=== PATIENT | female | born 1980 | race Caucasian/White ===

== ENCOUNTER 2023-04-13 07:51 | Day surgery (SDC) | payer OTHER, SELFPAY ==
[2023-04-06 10:35] VITALS: BMI 21.3
[2023-04-06 11:08] LABS: % Basophils 0.8 % (0-2); % Eosinophils 2.1 % (0-6); % Immature Granulocytes 0.3 % (0-0.5); % Lymphocytes 44.3 % (20.5-51.1); % Monocytes 6.9 % (1.7-9.3); % Neutrophils 45.6 % (42.2-75.2); Absolute Eosinophils 0.1 10^3/uL (0-0.7); Absolute Lymphocytes 1.7 10^3/uL (1.2-3.4); Absolute Monocytes 0.3 10^3/uL (0.1-0.6); Absolute Neutrophils 1.7 10^3/uL (1.4-6.5); Hematocrit 37.4 % (37.0-47.0); Hemoglobin 12.7 g/dL (12.0-16.0); Mean Corpuscular Hgb 31.3 pg (27.0-31.0); Mean Corpuscular Volume 92.1 fL (81.0-99.0); Mean Platelet Volume 9.5 fL (7.4-10.4); Nucleated Red Blood Cells % 0 %; Platelet Count 289 10^3/uL (130-400); Red Blood Cell Count 4.06 10^6/uL (4.20-5.40); White Blood Cell Count 3.8 10^3/uL (4.8-10.8)
[2023-04-06 11:15] LABS: ALT (SGPT) 16 U/L (0-35); AST (SGOT) 26 U/L (14-36); Albumin 4.5 g/dl (3.5-5.0); Alkaline Phosphatase 36 U/L (38-126); Blood Urea Nitrogen 14 mg/dl (7-17); Calcium 9.9 mg/dl (8.4-10.2); Carbon Dioxide 29 mmol/L (22-30); Chloride 99 mmol/L (98-107); Estimated Creatinine Clearance 92 ml/min; Glucose 82 mg/dl (70-99); Potassium 4.2 mmol/L (3.5-5.1); Sodium 137 mmol/L (135-145); Total Bilirubin 0.7 mg/dl (0.2-1.3); Total Protein 7.3 g/dl (6.3-8.2); eGFR > 60.00
[2023-04-13] VITALS (15 sets, daily range): BP systolic 100–124; BP diastolic 70–86; BMI 21.3
[2023-04-13 08:37] LABS: HCG, Urine Qualitative Screen Negative
--- NOTE | 2023-04-13 11:50 | ITS.CL.ABL ---
Director Bioinformatics - Ablation
Ablation
Procedure Report:
Supra-Ventricular Tachycardia � AVRT Ablation:
Ms. Lorenzo is a very pleasant�43 yr old woman with medical history significant for palpitations and was diagnosed with supra-ventricular tachycardia (SVT). He presented today to the EP lab for electrophysiology (EP) study of the heart and possible
ablation of the SVT.
Primary office support: Dr. Alok Suarez
�
Date of the Procedure:
04/13/2023
Indications: Supra-Ventricular Tachycardia (SVT)
�
Pre-Operative Diagnosis: Supra-Ventricular Tachycardia (SVT)
�
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
�
Procedure Performed: EP study and SVT ablation
�
Performing physician:
Olga Camacho MD
�
Anesthesia:
See anesthesia records
�
Detailed Description of the Procedure:
Written informed consent was obtained from the patient after a full explanation of the risks and benefits of the procedure including the risks of sedation and anesthesia. The patient was brought to the electrophysiology laboratory in stable
condition in fasting state. Continuous electrocardiographic and hemodynamic monitoring was initiated.
The initial rhythm was normal sinus.
The procedure site was meticulously prepared with surgical scrub and allowed to dry with no pooling. Sterile draping was applied to cover the procedure site. The image intensifier was draped with sterile bag and positioned over the patient.
Sheath and Catheter Placement:
After infusion of local anesthetic, vascular access was obtained under ultrasound guidance and sheaths were placed over guide wire as detailed below.
�
Sheaths:
- � � � 6 Fr sheath in right femoral vein
- � � � 9 Fr sheath in right femoral vein
- � � � 7 Fr sheath in right femoral vein
- � � � 8 Fr that was later upgraded to 11.5 Fr VIZIGO sheath in right femoral vein
�
Catheters:
- � � � 6Fr - Luis Quad-cath at RVa
- � � � 6Fr � Quad - cath at HIS
- � � � Deca polar Bard catheter - at locations of CS
- � � � ICE in RA
- � � � 3.5 mm force sensing irrigated Thermocool ST SF Bidirectional
�
Patient went into SVT spontaneously and has almost incessant tachycardia at 140 bpm. Given her incessant SVT, the SVT was studied first and full EP study was done later.
Following the sheaths placement, patient was given Heparin bolus.
Baseline intervals (milliseconds):
PP interval (baseline cycle length): 720
P wave duration:118
SD interval:156
QRS duration: 78
QT interval: 361
�
P onset to HRA: 0
P onset to AVJ: 40
AH interval: 68
His duration: 12
HV interval: 32
Q onset to RVa: 0
��
Sinus Node Function:
HRA pacing showed adequate threshold. The sinus node functions are within acceptable normal range.
SVT Arrhythmia Induction:
Programmed stimulation including single extrastimuli were delivered from the high right atrium and the proximal coronary sinus location following the drive train at 600 msec. There was easily inducible SVT that was able to speed up after the
initiation. �Tachycardia was not sustained and despite multiple termination attempts full EP study could not be done until the end of the ablation. The CS activation was concentric at baseline in sinus rhythm but was noted shelby eccentric in
tachycardia.
With incessant tachycardia following observations were made.
Tachycardia:
The tachycardia was studies with a cycle length of 340 msec. The tachycardia was eccentric and had long VA time (RV to RA). The tachycardia was entrained from the RVa ventricle.
i)������������� RVa PPI was indicative of close to the circuit of the tachycardia.
ii)������������ The RVa entrainment terminated the tachycardia once it perturb the tachycardia in a single beat.�
iii)���������� Proximal CS pacing showed progressive pre-excitation.�
iv)���������� The tachycardia terminated with a HIS synchronized PVC without conducting to the AV node again confirming the diagnosis.
v)����������� The LA was mapped in detail once the LA was accessed and showed the earliest point of the tachycardia at the left lateral location with close LV signals.
These findings were consistent with left sided accessory pathway.�
Trans-Septal Puncture:
Heparin was initiated and infused to maintain appropriate ACT.
First the right atrial mapping was done showing the tachycardia coming from the left atrium. A J-tipped guidewire was advanced through the 8-Mexican sheath in the right femoral vein into the superior vena cava under fluoroscopic and ICE guidance. The
8-Mexican sheath was exchanged for a VIZIGO sheath which was advanced into the superior vena cava. A BRK needle was advanced until the tip was slightly behind the tip of the dilator inside the VIZIGO. The apparatus was withdrawn until it was in
contact with the fossa ovalis.
There was a small patent santana ovale which led to the cannulation of the left atrium. The position was adjusted based on fluoroscopy and ultrasound images from ICE. Once atrial septum was cannulated, the needle was pulled back and a BMW guide wire
was advanced through the needle into the left atrium. The guide wire was advanced into the left superior pulmonary vein. Both the sheath and the dilator was advanced into the left atrium. The dilator with the needle was withdrawn. Blood was
aspirated from the VIZIGO sheath and arterial blood confirmed. The sheath was flushed. Saline injection noted into the left atrium on ICE. The ablation catheter was advanced in the VIZIGO sheath into the left pulmonary vein.
Electroanatomic 3D Mapping (EAM) and Ablation:
Patient was given Heparin bolus. The HRA was removed and was upgraded to VIZIGO as noted above for ablation catheter. EAM and radiofrequency ablation was performed using an open irrigation, force-sensing 3.5mm radiofrequency ablation catheter
([employer] STSF). 3D mapping was performed with Carto3 software. Cardiac anatomy as established. His cloud was established.
3D contact electroanatomical map was created using CARTO 3D mapping.�The AP was noted to be located at the left lateral location.�
Patient had incessant SVT and the LA was mapped in SVT as well and atrial insertion was recorded.
Ablation: SVT ablation
The EAM of the LA showed left lateral location of the pathway. The slant of the pathway identified. The atrial insertion was noted. Near the atrial insertion, the pathway potentials were noted. Radiofrequency ablation was performed using an open
irrigation, force-sensing 3.5mm radiofrequency ablation catheter ([employer] STSF) bidirectional was placed at the point of interest with the distinct pathway potential present and the ablation lesions was applied at 45 howard for SURPOINT lesion
index goal of 450. The tachycardia terminated within 2 seconds of the start of ablation. The CS conduction also changed from distal to proximal pattern to normal sinus pattern of proximal to distal.
Further consolidation lesions were applied to the atrial insertion and the slant of the pathway.
The SVT was easily inducible from the CS but following the ablation, multiple attempts were made and no SVT was induced. Normal AV conduction noted.
The pathway potential were observed throughout the case and LV was paced and the LA was paced repeatedly to identify the block at the AP.
Post Ablation EP study:
The post ablation EP study showed normal AV conduction. There was normal retrograde VA conduction present post ablation. There was long VA time noted in the distal CS.
The SD was 131msec; QRS was 85msec; AH was 80msec with HV of 48msec.
Post ablation AV node Wenckebach was noted at 290mse. AV cruz ERP was <200msec and atrial ERP was <200.
There was no sign of AV block noted.
��
Ventricular Function:
Single ventricular extrastimuli were delivered following drive train of 600 msec and the ventricular ERP was determined at below 600/410 msec with deep sedation. The ventricular electrical functions are within acceptable range.
�
Procedure End
Following the completion of the EP study, catheters were removed. The sheaths were removed and hemostasis achieved with placement of Vascade x3 and manual compression.
Recommendations:
��������� 2 hour of bedrest before slow ambulation.
��������� Likely discharge home today.
��������� No change in home medications.
�
Estimated Blood loss:
<5 cc
�
Specimens Removed:
None.
�
Implants / Devices:
None
�
Urine output:
None
�
Packs / Drains/ Tubes:
None
�
Instrument / Sponge Count Correct:
Yes
�
Complications of the Procedure:
None
�
Condition of Patient at Time of Transfer:
Hemodynamically stable with no neurological or vascular compromise.
�
Summary:
Electrophysiology study with induction of atrioventricular re-entry tachycardia (AVRT) and accessory pathway ablation.
(EP study, SVT ablation, Trans-septal, 3D mapping)
[2023-04-13] MEDS: FIORICET 1 TAB PO (12:59)
[2023-04-13] MEDS: MOTRIN 600 MG PO (13:59)
[2023-04-19 08:58] LABS: ACT-LR - POC 331 Seconds (116-155)
== END 2023-04-13 15:25 | disposition home or self-care (01) ==
LOC: CATH 07:51
PROVIDERS: ATTENDING PHYSICIAN Internal Medicine Cardiovascular Disease; FAMILY PHYSICIAN Family Medicine; OTHER PHYSICIAN Internal Medicine Cardiovascular Disease
DX: I47.10 Supraventricular tachycardia, unspecified (principal)
CPT/HCPCS: C1769; C1894; C1730; C1732; C1759; C1892; 36415; 76937; 80053; 81025; 85025; 85347; 86850; 86900; 86901; 93005; 93653; C1760